=== PATIENT | male | born 1970 | race Caucasian/White ===

== ENCOUNTER 2021-05-15 04:45 | Day surgery (SDC) | payer BC ==
[2021-05-11 11:23] VITALS: BMI 36.3
[2021-05-15] MEDS ORDERED: MIDAZOLAM HCL 2 MG/2 ML SINGLE DOSE VIAL ONE ×2 (15:05→16:40)
[2021-05-15] MEDS ORDERED: PROPOFOL 20 ML ONE (16:34)
[2021-05-15] MEDS ORDERED: ACETAMINOPHEN 500 MG TABLET (FP) PO PRN (17:00)
[2021-05-15] MEDS ORDERED: oxyCODONE HCL 5 MG TABLET PO PRN ×2 (17:00)
[2021-05-15] MEDS ORDERED: LACTATED RINGERS SOLUTION 1,000 ML IV SCH (17:00)
[2021-05-15] MEDS ORDERED: ONDANSETRON 4 MG/2 ML VIAL IVPUSH PRN (17:00)
[2021-05-15 17:56] VITALS: BP 123/72; PULSE 77; TEMP 98
== END 2021-05-15 18:00 | disposition home or self-care (01) ==
LOC: JASU-SURG 04:45
PROVIDERS: ATTEND Urology
PROC: 0TF3XZZ Fragmentation in Right Kidney Pelvis, External Approach (ICD-10-PCS; principal; 2021-05-15 14:30)
DX: N20.0 Calculus of kidney (principal)